=== PATIENT | female | born 1955 | race Caucasian/White ===

== ENCOUNTER 2016-04-13 14:43 | Outpatient (CLI) | payer BC ==
[~2016-04-13 14:43] MED LIST: BIMA2.5D5 EACHEYE
== END 2016-04-13 23:59 | disposition home or self-care (01) ==
LOC: RAD 14:43
PROVIDERS: ATTEND Internal Medicine
DX: M20.11 Hallux valgus (acquired), right foot (principal); M77.51 Other enthesopathy of right foot and ankle
CPT/HCPCS: 73630-TC

== ENCOUNTER 2016-06-03 11:37 | Outpatient (CLI) | payer BC | END 2016-06-03 23:59 | disposition home or self-care (01) | LOC: LAB 11:37 | PROVIDERS: ATTEND Family Medicine | DX: Z12.4 Encounter for screening for malignant neoplasm of cervix (principal); Z11.3 Encounter for screening for infections with a predominantly sexual mode of transmission | CPT/HCPCS: 87491; 87591; 88142 ==

== ENCOUNTER 2016-09-22 12:57 | Outpatient (CLI) | payer BC | END 2016-09-22 23:59 | disposition home or self-care (01) | LOC: LAB 12:57 | PROVIDERS: ATTEND Nurse Practitioner Acute Care | DX: E07.9 Disorder of thyroid, unspecified (principal) | CPT/HCPCS: 36415; 84443-TC ==

== ENCOUNTER 2016-09-22 13:42 | Outpatient (CLI) | payer BC | END 2016-09-22 23:59 | disposition home or self-care (01) | LOC: US 13:42 | PROVIDERS: ATTEND Nurse Practitioner Acute Care | DX: E04.1 Nontoxic single thyroid nodule (principal) | CPT/HCPCS: 76536-TC ==

== ENCOUNTER 2017-04-12 09:30 | Outpatient (CLI) | payer BC | END 2017-04-12 23:59 | disposition home or self-care (01) | LOC: CT 09:30 | PROVIDERS: ATTEND Legal Medicine | DX: R16.0 Hepatomegaly, not elsewhere classified (principal); M47.894 Other spondylosis, thoracic region; E04.1 Nontoxic single thyroid nodule | CPT/HCPCS: 70490-TC; 71250-TC ==

== ENCOUNTER 2019-05-26 10:14 | Emergency (ER) | payer OTHER ==
[~2019-05-26] VITALS: Ht 157.5 cm; Wt 82.1 kg
[2019-05-26 10:16] VITALS: BP 135/86
== END 2019-05-26 10:44 | disposition home or self-care (01) ==
LOC: ER 10:17
DX: U07.1 COVID-19 (principal); R50.9 Fever, unspecified; R06.02 Shortness of breath; J45.909 Unspecified asthma, uncomplicated
CPT/HCPCS: 36415

== ENCOUNTER 2019-08-23 15:11 | Outpatient (CLI) | payer BC, OTHER | END 2019-08-23 23:59 | disposition home or self-care (01) | LOC: LAB 15:11 | PROVIDERS: ATTEND Student in an Organized Health Care Education/Training Program | DX: Z01.84 Encounter for antibody response examination (principal); Z86.19 Personal history of other infectious and parasitic diseases | CPT/HCPCS: 36415 ==

== ENCOUNTER 2019-12-18 12:39 | Outpatient (CLI) | payer BC | END 2019-12-18 23:59 | disposition home or self-care (01) | LOC: LAB 12:39 → XR 23:59 | DX: I70.0 Atherosclerosis of aorta (principal); M47.819 Spondylosis without myelopathy or radiculopathy, site unspecified | CPT/HCPCS: 71046 ==

== ENCOUNTER 2020-12-15 09:44 | Outpatient (CLI) | payer BC ==
[2020-12-15 12:33] LABS: BASOPHILS % (AUTO) 0.2 % (0.0-2.0); EOSINOPHILS % (AUTO) 1.2 % (0.0-6.0); HEMATOCRIT 40 % (33-45); HEMOGLOBIN 13.3 g/dL (11.5-14.8); LYMPHOCYTES # (AUTO) 1.9 K/uL (0.8-4.8); LYMPHOCYTES % (AUTO) 19.9 % (20.0-44.0); MEAN CORPUSCULAR HGB CONC 33 g/dl (31.0-36.0); MEAN CORPUSCULAR VOLUME 80 fL (82-100); MONOCYTES # (AUTO) 0.5 K/uL (0.1-1.30); MONOCYTES % (AUTO) 5.6 % (2.0-12.0); NEUTROPHILS # (AUTO) 6.9 K/uL (1.8-8.9); NEUTROPHILS % (AUTO) 73.1 % (43.0-81.0); PLATELET COUNT (AUTO) 238 K/uL (150-450); RED BLOOD CELL COUNT(AUTO) 5.04 MIL/uL (4.0-5.2); WHITE BLOOD COUNT (AUTO) 9.5 K/uL (4.3-11.0)
[2020-12-15 13:05] LABS: FREE T4 (FREE THYROXINE) 1.16 ng/dL (0.76-1.46); THYROID STIMULATING HORMONE 2.294 uIU/mL (0.358-3.74); URIC ACID 6.2 mg/dL (2.6-7.2)
[2020-12-15 13:11] LABS: C-REACTIVE PROTEIN 4.4 mg/dL (0.0-0.9)
[2020-12-15 13:19] LABS: ALBUMIN 3.6 g/dL (3.4-5.0); BILIRUBIN,TOTAL 0.9 mg/dL (0.2-1.0); CALCIUM, SERUM 9.1 mg/dL (8.5-10.1); CREATININE 0.9 mg/dL (0.6-1.3); TOTAL PROTEIN, SERUM 8.4 g/dL (6.4-8.2)
[2020-12-15 16:45] LABS: BILIRUBIN,URINE NEGATIVE (NEGATIVE); COLOR,URINE YELLOW (YELLOW); LEUKOCYTE ESTERASE ,URINE NEGATIVE (NEGATIVE); NITRITE, URINE NEGATIVE (NEGATIVE); PROTEIN,URINE NEGATIVE (NEGATIVE); UGLUCOSE NEGATIVE (NEGATIVE); UROBILINOGEN,URINE 0.2 EU/dL (0.2)
[2020-12-15 17:08] LABS: BACTERIA,URINE 1+ /HPF (None Seen); MUCUS,URINE Few /LPF (None Seen)
== END 2020-12-15 23:59 | disposition home or self-care (01) ==
LOC: LAB 09:44
PROVIDERS: ATTEND Legal Medicine
DX: I12.9 Hypertensive chronic kidney disease with stage 1 through stage 4 chronic kidney disease, or unspecified chronic kidney disease (principal); N18.9 Chronic kidney disease, unspecified; I25.10 Atherosclerotic heart disease of native coronary artery without angina pectoris; E78.5 Hyperlipidemia, unspecified; E03.9 Hypothyroidism, unspecified; D64.9 Anemia, unspecified; E55.9 Vitamin D deficiency, unspecified; M47.22 Other spondylosis with radiculopathy, cervical region; M50.13 Cervical disc disorder with radiculopathy, cervicothoracic region; M48.02 Spinal stenosis, cervical region; M25.78 Osteophyte, vertebrae; Z00.00 Encounter for general adult medical examination without abnormal findings
CPT/HCPCS: 36415; 72141-TC; 80053-TC; 80061-TC; 81001; 82306; 82607-TC; 82728-TC; 83540-TC; 83880; 84439-TC; 84443-TC; 84550-TC; 85025-TC; 85652-TC; 86140-TC

== ENCOUNTER 2020-12-16 11:00 | Outpatient (CLI) | payer BC | END 2020-12-16 23:59 | disposition home or self-care (01) | LOC: US 11:00 | PROVIDERS: ATTEND Legal Medicine | DX: E04.2 Nontoxic multinodular goiter (principal) | CPT/HCPCS: 76536-TC ==

== ENCOUNTER 2020-12-24 11:26 | Outpatient (CLI) | payer BC | END 2020-12-24 23:59 | disposition home or self-care (01) | LOC: RAD 11:26 | PROVIDERS: ATTEND Legal Medicine | DX: I10 Essential (primary) hypertension (principal); I70.0 Atherosclerosis of aorta; R06.02 Shortness of breath; R09.89 Other specified symptoms and signs involving the circulatory and respiratory systems | CPT/HCPCS: 71046; 93307-TC; 93880-TC ==

== ENCOUNTER 2021-01-07 12:20 | Outpatient (CLI) | payer BC ==
[2021-01-07 13:06] LABS: URIC ACID 6.2 mg/dL (2.6-7.2)
[2021-01-07 13:09] LABS: C-REACTIVE PROTEIN 1.9 mg/dL (0.0-0.9)
[2021-01-08 07:07] LABS: *ANA ANTI-CENTROMERE B AB <0.2 AI (0.0-0.9); *ANA ANTI-DNA(DS) AB, QN 1 IU/mL (0-9); *ANA ANTI-JO-1 <0.2 AI (0.0-0.9); *ANA ANTICHROMATIN ANTIBODY <0.2 AI (0.0-0.9); *ANA RNP ANTIBODIES <0.2 AI (0.0-0.9); *ANA SJOGREN'S ANTI-SS-A <0.2 AI (0.0-0.9); *ANA SJOGREN'S ANTI-SS-B <0.2 AI (0.0-0.9); *ANAANTI-SCLERODERMA-70 AB <0.2 AI (0.0-0.9); *ANASMITH AB <0.2 AI (0.0-0.9)
[2021-01-09 20:06] LABS: CCP IgG/IgA AB 6 units (0-19)
== END 2021-01-07 23:59 | disposition home or self-care (01) ==
LOC: LAB 12:20
PROVIDERS: ATTEND Legal Medicine
DX: M19.90 Unspecified osteoarthritis, unspecified site (principal)
CPT/HCPCS: 36415; 82550-TC; 84550-TC; 85652-TC; 86140-TC; 86200; 86225; 86235; 86431-TC

== ENCOUNTER 2022-04-05 12:16 | Outpatient (CLI) | payer BC ==
[2022-04-05 14:46] LABS: BASOPHILS % (AUTO) 0.1 % (0.0-2.0); EOSINOPHILS % (AUTO) 0.9 % (0.0-6.0); HEMATOCRIT 44 % (33-45); HEMOGLOBIN 13.9 g/dL (11.5-14.8); LYMPHOCYTES # (AUTO) 1.7 K/uL (0.8-4.8); LYMPHOCYTES % (AUTO) 15.8 % (20.0-44.0); MEAN CORPUSCULAR HGB CONC 32 g/dl (31.0-36.0); MEAN CORPUSCULAR VOLUME 80 fL (82-100); MONOCYTES # (AUTO) 0.6 K/uL (0.1-1.30); MONOCYTES % (AUTO) 5.2 % (2.0-12.0); NEUTROPHILS # (AUTO) 8.5 K/uL (1.8-8.9); PLATELET COUNT (AUTO) 265 K/uL (150-450); RED BLOOD CELL COUNT(AUTO) 5.46 MIL/uL (4.0-5.2); WHITE BLOOD COUNT (AUTO) 10.9 K/uL (4.3-11.0)
[2022-04-05 14:59] LABS: BILIRUBIN,URINE 1+ (NEGATIVE); COLOR,URINE YELLOW (YELLOW); LEUKOCYTE ESTERASE ,URINE NEGATIVE (NEGATIVE); NITRITE, URINE NEGATIVE (NEGATIVE); PROTEIN,URINE 1+ mg/dl (NEGATIVE); UGLUCOSE NEGATIVE (NEGATIVE); UROBILINOGEN,URINE 0.2 EU/dL (0.2)
[2022-04-05 15:23] LABS: THYROID STIMULATING HORMONE 3.075 uIU/mL (0.358-3.74)
[2022-04-05 15:32] LABS: BACTERIA,URINE None seen /HPF (None Seen); MUCUS,URINE Few /LPF (None Seen); SQUAMOUS EPITHELIAL CELL,UR 0-2 /HPF (None Seen); WBC,URINE 0-2 /HPF (0-3)
[2022-04-05 15:39] LABS: ALBUMIN 3.6 g/dL (3.4-5.0); BILIRUBIN,TOTAL 0.6 mg/dL (0.2-1.0); CALCIUM, SERUM 9.5 mg/dL (8.5-10.1); CREATININE 1.1 mg/dL (0.6-1.3); POTASSIUM 3.7 mmol/L (3.5-5.1); TOTAL PROTEIN, SERUM 8.2 g/dL (6.4-8.2)
== END 2022-04-05 23:59 | disposition home or self-care (01) ==
LOC: LAB 12:16
PROVIDERS: ATTEND Legal Medicine
DX: I10 Essential (primary) hypertension (principal)
CPT/HCPCS: 36415; 80053-TC; 80061-TC; 81001; 82607-TC; 83880; 84439-TC; 84443-TC; 84484-TC; 85025-TC; 93307-TC

== ENCOUNTER → 2022-04-19 | Outpatient (CLI) | payer BC | END | disposition home or self-care (01) | LOC: RAD 12:02 | PROVIDERS: ATTEND Legal Medicine | DX: M51.34 Other intervertebral disc degeneration, thoracic region (principal); I70.0 Atherosclerosis of aorta; R07.9 Chest pain, unspecified | CPT/HCPCS: 71046 ==

== ENCOUNTER 2022-06-24 19:58 | Emergency (ER) | payer BC, OTHER ==
[~2022-06-24] VITALS: Ht 157.5 cm; Wt 111.1 kg
--- NOTE | 2022-06-24 20:10 | NUR ---
CAME WITH CP SCALE OF 5/10 STARTED 4PM. TOOK METOPROLOL ER 25MG. PAIN CHARACTERIZED PRESSURED. PATIENT IS AAOX4. ABLE TO MAKE NEEDS KNOWN. -SOB AT THE MOMENT. AMBULATORY. PLACED COMFORTABLY IN BED. ATTACHED TO MONITOR. VITALS CHECKED.
--- NOTE | 2022-06-24 20:20 | NUR ---
IV AMBROCIO G20 INSERTED ON LEFT AC. BLOOD DRAWN AND SENT TO LAB
--- NOTE | 2022-06-24 20:21 | NUR ---
EKG DONE AT BEDSIDE
--- NOTE | 2022-06-24 20:25 | NUR ---
HEALTH INFORMATION MANAGERS AT PT'S BEDSIDE
[2022-06-24] MEDS: IV NS 0.9% 1,000 ML IV ONE (20:41)
[2022-06-24 21:07] LABS: BASOPHILS % (AUTO) 0.2 % (0.0-2.0); EOSINOPHILS % (AUTO) 1.2 % (0.0-6.0); HEMATOCRIT 43 % (33-45); HEMOGLOBIN 13.6 g/dL (11.5-14.8); LYMPHOCYTES # (AUTO) 1.7 K/uL (0.8-4.8); LYMPHOCYTES % (AUTO) 15.3 % (20.0-44.0); MEAN CORPUSCULAR HGB CONC 31 g/dl (31.0-36.0); MEAN CORPUSCULAR VOLUME 81 fL (82-100); MONOCYTES # (AUTO) 0.7 K/uL (0.1-1.30); MONOCYTES % (AUTO) 6.1 % (2.0-12.0); NEUTROPHILS # (AUTO) 8.8 K/uL (1.8-8.9); NEUTROPHILS % (AUTO) 77.2 % (43.0-81.0); PLATELET COUNT (AUTO) 230 K/uL (150-450); RED BLOOD CELL COUNT(AUTO) 5.36 MIL/uL (4.0-5.2); WHITE BLOOD COUNT (AUTO) 11.4 K/uL (4.3-11.0)
[2022-06-24 21:20] LABS: CALCIUM, SERUM 9.4 mg/dL (8.5-10.1); POTASSIUM 3.7 mmol/L (3.5-5.1)
[2022-06-24] MEDS ORDERED: CT SWABBABLE VALVE TRANS SET 1 EA INFUS.SET MC ONE (22:26)
[2022-06-24] MEDS ORDERED: IOHEXOL-300 100 ML VIAL IV ONE (22:26)
[2022-06-24] MEDS ORDERED: IV NS 0.9% 250 ML IV ONE (22:26)
--- NOTE | 2022-06-24 22:37 | NUR ---
PT TAKEN TO CT
--- NOTE | 2022-06-24 22:54 | NUR ---
PT BACK FROM CT
[2022-06-25 01:24] VITALS: BP 136/65
--- NOTE | 2022-06-25 01:24 | NUR ---
IV AMBROCIO REMOVED
== END 2022-06-25 01:26 | disposition home or self-care (01) ==
LOC: ER 20:00
DX: R07.9 Chest pain, unspecified (principal); K44.9 Diaphragmatic hernia without obstruction or gangrene; J45.909 Unspecified asthma, uncomplicated
CPT/HCPCS: 99285; 74177; 96360; 71045; 93005 ×2; 85025; 80048; 36415 ×2; 84484 ×2; 83880; J7030; J7050; Q9967

== ENCOUNTER 2022-06-25 13:13 | Outpatient (CLI) | payer BC, OTHER ==
[~2022-06-25] VITALS: Ht 157.5 cm; Wt 144.7 kg
[2022-06-25] MEDS ORDERED: NITROGLYCERIN 0.4 MG/TAB BOTTLE SL ONE (14:00)
[2022-06-25] MEDS: METOPROLOL TARTRATE INJ 5 MG/5 ML AMPUL IVP PRN ×2 (14:05→14:10)
[2022-06-25] MEDS ORDERED: METOPROLOL TARTRATE INJ 5 MG/5 ML AMPUL ONE (14:09)
[2022-06-25] MEDS ORDERED: IV NS 0.9% 250 ML IV ONE (14:09)
[2022-06-25] MEDS ORDERED: NITROGLYCERIN 0.4 MG/TAB BOTTLE ONE (14:09)
[2022-06-25] MEDS ORDERED: CT SWABBABLE VALVE TRANS SET 1 EA INFUS.SET MC ONE (14:09)
[2022-06-25] MEDS ORDERED: IOHEXOL-350 100 ML VIAL IV ONE (14:09)
[2022-06-25 14:25] VITALS: BP 155/80
[2022-06-25 14:29] LABS: CHOLESTEROL 228 mg/dL (<200); HDL CHOLESTEROL 48 mg/dL (40-60); LDL 160 mg/dL (0-99); TRIGLYCERIDES 224 mg/dL (30-150)
== END 2022-06-25 23:59 | disposition home or self-care (01) ==
LOC: CT 13:13
PROVIDERS: ATTEND Internal Medicine Interventional Cardiology
DX: I65.22 Occlusion and stenosis of left carotid artery (principal); E11.9 Type 2 diabetes mellitus without complications; E78.5 Hyperlipidemia, unspecified; I25.10 Atherosclerotic heart disease of native coronary artery without angina pectoris; R07.9 Chest pain, unspecified
CPT/HCPCS: 75574; 80061; 83036; 36415; J3490; J7050; Q9967

== ENCOUNTER 2022-08-04 10:50 | Outpatient (CLI) | payer BC, OTHER ==
[2022-08-04] MEDS ORDERED: IOHEXOL-300 100 ML VIAL IV ONE (15:52)
[2022-08-04] MEDS ORDERED: IV NS 0.9% 250 ML IV ONE (15:52)
[2022-08-06 01:07] LABS: AFP, TUMOR MARKER 2.9 ng/mL (0.0-9.2); CANCER AG, 125 12.3 U/mL (0.0-38.1); CARBOHYDRATE AG 19-9 <2 U/mL (0-35)
== END 2022-08-04 23:59 | disposition home or self-care (01) ==
LOC: LAB 10:50
DX: R16.0 Hepatomegaly, not elsewhere classified (principal); M51.37 Other intervertebral disc degeneration, lumbosacral region
CPT/HCPCS: 74170; 36415; 82105; 82378; 86301; 86304; J7050; Q9967

== ENCOUNTER 2024-09-13 12:12 | Outpatient (CLI) | payer BC, OTHER ==
[~2024-09-13 12:12] MED LIST changes: +CEFD300C3 PO
[2024-09-13] MEDS ORDERED: IV NS 0.9% 250 ML IV ONE (13:11)
[2024-09-13] MEDS ORDERED: IOHEXOL-300 100 ML VIAL IV ONE (13:11)
== END 2024-09-13 23:59 | disposition home or self-care (01) ==
LOC: CT 12:12
DX: K44.9 Diaphragmatic hernia without obstruction or gangrene (principal); R10.9 Unspecified abdominal pain; K76.9 Liver disease, unspecified; J98.11 Atelectasis
CPT/HCPCS: 74177; J7050; Q9967

== ENCOUNTER 2024-09-22 14:18 | Emergency (ER) | payer BC, OTHER ==
[~2024-09-22] VITALS: Ht 167.6 cm; Wt 111.1 kg
[2024-09-22 14:24] VITALS: BP 176/89; TEMP 98.2
[2024-09-22] MEDS ORDERED: dexaMETHasone SOD PHOSPHATE 1 ML ONE (14:36)
[2024-09-22] MEDS ORDERED: KETOROLAC TROMETHAMINE INJ 30 MG/ML VIAL ONE (14:36)
[2024-09-22] MEDS: dexaMETHasone SOD PHOSPHATE 10 MG/ML VIAL IM ONE (14:40)
[2024-09-22] MEDS: KETOROLAC TROMETHAMINE INJ 30 MG/ML VIAL IM ONE (14:43)
[2024-09-22 17:16] VITALS: O2SAT 99
[2024-09-22] MEDS ORDERED: IBUP-1953 PO (17:45)
[2024-09-22] MEDS ORDERED: PANT40TA2 PO (17:45)
[2024-09-22] MEDS ORDERED: METH4TAB3 PO (17:45)
== END 2024-09-22 17:17 | disposition home or self-care (01) ==
LOC: ER 14:18
DX: M54.50 Low back pain, unspecified (principal); I10 Essential (primary) hypertension; G89.29 Other chronic pain; J45.909 Unspecified asthma, uncomplicated; Z79.899 Other long term (current) drug therapy
CPT/HCPCS: 99285; 72131; 96372 ×2; J1885; J1100